=== PATIENT | female | born 1995 | race Caucasian/White ===

== ENCOUNTER 2024-06-14 16:00 | Outpatient (CLI) | payer BC, SELFPAY ==
[2024-06-14 18:50] LABS: Chlamydia DNA Amplified* NOT DETECTED (No Detected); GC DNA Amplified* NOT DETECTED (No Detected)
[2024-06-18 11:10] LABS: HPV Source Cervix; HPV, High Risk by TMA Not Detected
== END 2024-06-14 16:01 | disposition home or self-care (01) ==
PROVIDERS: Visit Provider Midwife
DX: Z34.91 Encounter for supervision of normal pregnancy, unspecified, first trimester (principal); Z12.4 Encounter for screening for malignant neoplasm of cervix; Z3A.08 8 weeks gestation of pregnancy; Z13.79 Encounter for other screening for genetic and chromosomal anomalies
CPT/HCPCS: 76817; 86592; 86703; 86704; 86706; 86762; 86787; 86803; 86850; 86900; 86901; 87086; 87340; 87491; 87591; 87624; 87625; 88141; 88142

== ENCOUNTER 2024-09-14 10:45 | Outpatient (CLI) | payer BC, SELFPAY | END 2024-09-14 10:46 | disposition home or self-care (01) | LOC: US 10:45 | PROVIDERS: PCP Nurse Practitioner Family; Visit Provider Midwife | DX: O99.212 Obesity complicating pregnancy, second trimester (principal); Z68.42 Body mass index [BMI] 45.0-49.9, adult; Z3A.21 21 weeks gestation of pregnancy | CPT/HCPCS: 76811 ==

== ENCOUNTER 2024-10-12 10:19 | Outpatient (CLI) | payer BC, SELFPAY | END 2024-10-12 10:20 | disposition home or self-care (01) | PROVIDERS: PCP Nurse Practitioner Family; Visit Provider Advanced Practice Midwife | DX: Z34.92 Encounter for supervision of normal pregnancy, unspecified, second trimester (principal); Z3A.25 25 weeks gestation of pregnancy | CPT/HCPCS: 76816 ==

== ENCOUNTER 2024-11-01 14:09 | Outpatient (CLI) | payer BC, SELFPAY ==
--- NOTE | 2024-11-01 14:09 | CRLHL7_ITS ---
For Patients: As a result of the Century Cures Act, medical imaging exams and procedure reports are released immediately into your electronic medical record. You may view this report before your referring provider. If you have questions, please contact your health care provider. OB ULTRASOUND LMP: 04/18/2024. TALA by LMP: 01/23/2025. GA: 28 w, 1 d. Single Comparison: 10/12/2024, 09/14/2024, 06/14/2024. INDICATION: Ultrasound for growth. Follow-up heart views. Elevated BMI. TECHNIQUE: Real time grayscale imaging of the fetus was performed. Transabdominal. CERVIX: Visualized. TA or TV measurement: 4.6 cm. POSITIONING: Vertex. AMNIOTIC FLUID: 5.4 cm. SDP (N: greater than 2 x 1 cm) PLACENTA: Technique: Transabdominal. PLACENTA POSITION: Fundal, posterior. DOPPLER: heart rate: 159 bpm. BIOMETRY: BPD: 7.4 cm. 29 w, 4 d, 80.8 percent. HC: 27.5 cm. 30 w, 1 d, 78.1 percent. AC: 23.6 cm. 28 w, 0 d, 35.8 percent. FL: 5.3 cm. 28 w, 0 d, 30.3 percent. FL/AC ratio: 22.3 percent. HC/AC ratio: 1.2. EFW: 1199 g. Weight: 2 lbs, 10 oz. age by this US: 29 w, 0 d. TALA by this US: 01/17/2025. Percentile by TALA: 41.4 percent. IMPRESSION: 1. Estimated weight is at the 41st percentile. 2. Four-chamber heart and cardiac outflow tracts appear normal. Too Mcrae M.D. Body/Diagnostic Radiologist [email or web address] PING/nahun garn[place]/Dictated by: Too Mcrae MD @ 11/02/2024 3:27:00 PM (Electronically Signed)
== END 2024-11-01 14:10 | disposition home or self-care (01) ==
LOC: US 14:10
PROVIDERS: PCP Nurse Practitioner Family; Visit Provider Advanced Practice Midwife
DX: O99.213 Obesity complicating pregnancy, third trimester (principal); Z3A.28 28 weeks gestation of pregnancy
CPT/HCPCS: 76816; 86592

== ENCOUNTER 2024-12-13 14:43 | Outpatient (CLI) | payer BC, SELFPAY ==
--- NOTE | 2024-12-13 15:00 | CRLHL7_ITS ---
For Patients: As a result of the Century Cures Act, medical imaging exams and procedure reports are released immediately into your electronic medical record. You may view this report before your referring provider. If you have questions, please contact your health care provider. OB ULTRASOUND BIOPHYSICAL PROFILE AND FOLLOW-UP Clinical History: LMP: 04/18/2024. TALA by LMP: 01/13/2025. GA: 34 w, 1 d. Single. Comparison: 11/01/2024, 10/12/2024, 09/14/2024. INDICATION: Obesity. TECHNIQUE: Real time cage scale imaging of the fetus was performed. Transabdominal imaging performed. CERVIX: Not visualized. POSITIONING: Vertex. AMNIOTIC FLUID: 6.2 cm. SDP (N: greater than 2 x 1 cm) BIOPHYSICAL PROFILE: Gross body movements: 2. tone: 2. Respiratory activity: 2. Amniotic fluid: 2. SDP (N: greater than 2 x 1 cm). Total score: 8. PLACENTA: Technique: Transabdominal. PLACENTA POSITION: Fundal, posterior. DOPPLER: heart rate: 144 bpm. BIOMETRY: BPD: 8.8 cm. 35 w, 3 d, 83.2 percent. HC: 32.9 cm. 37 w, 3 d, 89.0 percent. AC: 31.5 cm. 35 w, 3 d, 86.2 percent. FL: 6.6 cm. 34 w, 0 d, 35.0 percent. FL/AC ratio: 20.92 percent. HC/AC ratio: 1.04. EFW: 2628 g. Weight: 5 lbs, 13 oz. age by this US: 35 w, 4 d. TALA by this US: 01/13/2025. Percentile by TALA: 76.4 percent. IMPRESSION: 1. Sonographic gestational age 35 weeks 4 days and sonographic due date 01/13/2025. Sonographic age is 10 days ahead of the clinical age. 2. Estimated weight 76th percentile. Abdominal circumference 86th percentile. 3. Biophysical profile is normal at 8/8. Marv Mccollum M.D. Diagnostic Radiologist [email or web address] SP/Dictated by: Marv Mccollum MD @ 12/13/2024 8:19:00 PM (Electronically Signed)
== END 2024-12-13 14:44 | disposition home or self-care (01) ==
PROVIDERS: PCP Nurse Practitioner Family; Visit Provider Advanced Practice Midwife
DX: O99.213 Obesity complicating pregnancy, third trimester (principal); O36.5930 Maternal care for other known or suspected poor fetal growth, third trimester, not applicable or unspecified; Z3A.35 35 weeks gestation of pregnancy
CPT/HCPCS: 76816; 76819

== ENCOUNTER 2024-12-27 16:28 | Outpatient (CLI) | payer BC, SELFPAY ==
[2024-12-28 18:21] LABS: Strep B DNA Probe Negative (Negative)
[2024-12-28 21:54] LABS: Strep B Susceptibility Needed? No
== END 2024-12-27 16:29 | disposition home or self-care (01) ==
LOC: NFLDREF 16:28
PROVIDERS: PCP Nurse Practitioner Family; Visit Provider Advanced Practice Midwife
DX: O09.93 Supervision of high risk pregnancy, unspecified, third trimester (principal); Z3A.36 36 weeks gestation of pregnancy
CPT/HCPCS: 87081; 87653

== ENCOUNTER 2025-01-09 13:59 | Outpatient (CLI) | payer BC, SELFPAY ==
--- NOTE | 2025-01-09 14:00 | CRLHL7_ITS ---
For Patients: As a result of the Century Cures Act, medical imaging exams and procedure reports are released immediately into your electronic medical record. You may view this report before your referring provider. If you have questions, please contact your health care provider. OB ULTRASOUND LMP: 04/18/2024. TALA by LMP: 01/23/2025. GA: 38 w, 0 d. Single. COMPARISON: 12/13/2024, 11/01/2024, 10/12/2024. INDICATION: Obesity. TECHNIQUE: Real time cage scale imaging of the fetus was performed. Transabdominal imaging performed. CERVIX: Not visualized. POSITIONING: Vertex. AMNIOTIC FLUID: 6.8 cm. SDP (N: greater than 2 x 1 cm). BIOPHYSICAL PROFILE: Gross body movements: 2. tone: 2. Respiratory activity: 2. Amniotic fluid: 2. SDP (N: greater than 2 x 1 cm) Total score: 8. PLACENTA: Technique: Transabdominal. PLACENTA POSITION: Fundal, posterior. DOPPLER: heart rate: 165 bpm. BIOMETRY: BPD: 9.3 cm. 37 w, 5 d, 65.2 percent. HC: 34.6 cm. 40 w, 0 d, 77.1 percent. AC: 35.0 cm. 38 w, 6 d, 87.6 percent. FL: 7.2 cm. 36 w, 6 d, 25.6 percent. FL/AC ratio: 20.59 percent. HC/AC ratio: 0.99. EFW: 3496 g. Weight: 7 lbs, 11 oz. age by this US: 38 w, 3 d. TALA by this US: 01/20/2025. Percentile by TALA: 73.6 percent. IMPRESSION: 1. Normal biophysical profile 03/17. 2. Sonographic gestational age 38 weeks 3 days and sonographic due date 01/20/2025. Good correlation with dates. Normal interval growth. 3. Estimated weight 74th percentile. Abdominal circumference 88th percentile. Marv Mccollum M.D. Diagnostic Radiologist [email or web address] DESHAUN/Dictated by: Marv Mccollum MD @ 01/09/2025 8:58:00 PM (Electronically Signed)
== END 2025-01-09 14:00 | disposition home or self-care (01) ==
LOC: US 14:00
PROVIDERS: PCP Nurse Practitioner Family; Visit Provider Advanced Practice Midwife
DX: O99.213 Obesity complicating pregnancy, third trimester (principal); Z3A.38 38 weeks gestation of pregnancy
CPT/HCPCS: 76816; 76819

== ENCOUNTER 2025-01-25 17:48 | Inpatient (IN) | payer BC, SELFPAY ==
[2025-01-25 18:14] VITALS: BP 113/58; PULSE 72; PULSE 82; TEMP 36.6; O2SAT 96
[2025-01-25 18:34] VITALS: BMI 46.3
--- NOTE | 2025-01-25 20:37 | W.PM.LDBA ---
Subjective History of Present Illness Date Seen: 01/25/25 Narrative: Patient is being admitted to Labor and Delivery for IOL for BMI >45. She is a 29 year old at 40.2 weeks gestation. Her full history and physical was dictated by Rina Jimenez CNM on 01/05/25. Please see this for details. We discussed option for IOL. She was checked last week in clinic and was 1cm/0%/-4 at that time. She has felt only a few contraction over the last week and so declines cervical exam at this time. Will presume there has not been enough change for mayberry score to be >6 so will plan for cervical ripening. Discussed Cytotec, Cervidil, and cook catheter. She would like to avoid Cook if possible. Will plan for vaginal Cytotec overnight with Pitocin to follow. All questions answered. Encouraged therapeutic sleep overnight and she s agreeable to this. manager call OB provider was notified of the IOL for BMI .45 per policy. Specific Issues/Plans G1 P 0 Partner: Dieter-? H&P completed by AIXA Barboza on 01/05/2025? ? #Pre BMI 45.6: Diet and weight recommendations reviewed 06/14/24 Nutrition referral-[]-offer again please Anesthesia referral-completed 09/14 OB referral- completed 09/14 Lev 2 US- Completed 09/14: several suboptimal views. Repeat 10/12: suboptimal views of heart; Echo recommended. Declines, knows risks. US 11/01/24-1. Estimated weight is at the 41st percentile. 2. Four-chamber heart and cardiac outflow tracts appear normal. [facility] recommends Growth Q4-6 weeks starting at 28 weeks: 28 wks 41.4, 34 wks- 76.4 percent. Weekly BPP or NST starting at 34w -message sent to practice administrator for NSTs. Delivery recommendation 39.0-39.6, considering but may desire later timing #Primigravida: Enc baby ASA at 12w #Rubella and Varicella non-immune Recommend vaccines Per [facility] she is vaccinated for all including Hep B as a child #Hep B non-immune Low risk, deferred on 09/14 #Nipple vasospasms: Consider testing for Raynauds Consider appt prenatally, offered pt undecided # Brother had shingles 5/27/25, non immune to varicella; recommended to avoid direct contact and standard precautions IMAGINst trimester (06/14/2024): Single intrauterine gestation with estimated age of 8 weeks 2 days. Regular cardiac activity is seen. Anatomy scan, Level II w/ MFM (09/14/2024): Impression: 1. [place] at 21w2d gestational age. 2. No anomalies commonly detected by ultrasound were identified in the detailed anatomic survey within the limits of ultrasound, however some views were suboptimal, as described above. 3. Growth parameters and estimated weight were consistent with gestational age predicted by assigned TALA. 4. The amniotic fluid volume appeared normal. 5. On transabdominal imaging the cervix appeared long and closed. Follow up suboptimal views(10/12/2024): Impression: 1. [place] at 25w2d gestational age. 2. Some of the remaining anatomic survey was completed, no anomalies commonly detected by ultrasound were identified within the limits of ultrasound, however, some views again remained suboptimally visualized as documented above. 3. Growth parameters and estimated weight were consistent with gestational age predicted by assigned TALA. 4. The amniotic fluid volume appeared normal. Growth US (11/01/2024): IMPRESSION: 1. Estimated weight is at the 41st percentile. 2. Four-chamber heart and cardiac outflow tracts appear normal. Growth US (12/13/2024): IMPRESSION: 1.Sonographic gestational age 35 weeks 4 days and sonographic due date 01/13/2025. Sonographic age is 10 days ahead of the clinical age. 2.Estimated weight 76th percentile. Abdominal circumference 86th percentile. 3.Biophysical profile is normal at 8/8. Growth and BPP (01/09/25): BPP 8/8, EFW 74% COVID: declines Flu: declines TDAP: 12/13/2024 32wk Mental Health:11/29/2024 LP: 08/02/18 HPV(+)for other NIL. Done 06/14/2024 OB - Problem Based A/P Additional Plan (1) Encounter for induction of labor: Status: Acute (2) Obesity affecting , antepartum: Status: Acute (3) Body mass index [BMI] 45.0-49.9, adult: Status: Acute Plan ASSESSMENT:? at 40.2 weeks gestation? GBS negative? complicated by: prepregnancy BMI 45.6, current BMI 46.1, primigravida, rubella nonimmune, varicella nonimmune Medical IOL for elevated BMI? Blood type:?A+ Labor type: Induced, vaginal Cytotec? Category 1 FHR pattern ? PLAN:? 1. Routine intrapartum cares as ordered. Continue with expectant management? 2. Reviewed risks and benefits of IOL with Pitocin vs Cytotec. Pt prefers Cytotec. Pitocin to follow if needed.? 3. Monitoring per policy, continuous? 4. Candidate for analgesia of choice.?Planning epidural.? 5. Patient encouraged to reposition and ambulate to promote physiologic labor and . 6. Encouraged therapeutic rest overnight. ? 7. Anticipate ? Delivery/Labor/Induction Plan Plan: induction Induction method: per misoprostol protocol OB Result Labs Blood Type: A (+) positive Rubella: nonimmune RPR/VDLR: nonreactive GBS Status: negative HBsAG: negative OB Exam Physical Exam Vital signs: Temp Pulse BP Pulse Ox 97.9 F 72 113/58 L 96 01/25/25 18:14 01/25/25 18:14 01/25/25 18:14 01/25/25 18:14 Narrative: Psychiatric:? Alert and oriented x3? HEENT:? Normocephalic, atraumatic? Neck:? Supple without adenopathy or thyromegaly? Lungs:? Clear to auscultation bilaterally? Heart:? Regular rate and rhythm, no murmur, rub or gallop? Abdomen:? Soft, nontender, and gravid? Extremities:? No edema or erythema? Detailed Labor and Delivery Exam Patient Gravid: yes Contraction Frequency: inconsistent on the [place] and not felt per pt report. Contraction intensity: Mild Fetus (Single) Amniotic Membrane Status: intact Heart Rate Baseline: 130 Monitor Accelerations: Present Monitor Decelerations: None Demurrage Agent Variability: Moderate (6-25)
[2025-01-25] MEDS: miSOPROStoL 25 MCG/0.25 TABLET VAGINAL (20:40)
[2025-01-25 20:45] VITALS: BP 117/62; PULSE 82; RESP 16; TEMP 36.7
[2025-01-25 20:46] VITALS: PULSE 83; PULSE 90; O2SAT 97
[2025-01-26] VITALS (60 sets, daily range): BP systolic 86–127; BP diastolic 45–70; PULSE 30–92; RESP 16–20; TEMP 36.6–36.8; O2SAT 92–100
[2025-01-26 01:23] LABS: Basophils Percent Auto 0.1 % (0.0-3.0); Eosinophils Percent Auto 0.7 % (0.0-7.0); Hemoglobin* 12.5 gm/dL (12.0-16.0); Immature Granulocytes Pct Auto 0.2 %; Lymphocytes Percent Auto 31.7 % (20-44); Mean Corpuscular HGB Conc 33 gm/dL (32-36); Mean Corpuscular Hemoglobin 31 pg (26-34); Mean Corpuscular Volume 94 fL (80-100); Monocytes Percent Auto 7.1 % (0.0-11.0); Neutrophils Percent Auto 60.2 % (42.0-72.0); Platelet Count* 272 K/uL (140-440); RDW Coefficient of Variation % 13.9 % (11.5-15.5); Red Blood Count 4.06 m/uL (4.00-5.20); White Blood Count* 11.18 K/uL (4.50-11.00)
[2025-01-26 01:26] LABS: Slide Review Reflex No
[2025-01-26] MEDS: miSOPROStoL 25 MCG/0.25 TABLET VAGINAL ×4 (02:15→12:35)
--- NOTE | 2025-01-26 07:18 | PM.OBPNL ---
Subjective Date Seen: 01/26/25 Narrative: Patient is being induced for BMI >45. She is a 29 year old at 40.3 weeks gestation. She is currently showering and plans to eat breakfast prior to her 4th dose of vaginal cytotec. She is starting to feel her mild contractions. She is planning an epidural at some point. Her is here supporting her at bedside. Specific Issues/Plans G1 P 0 Partner: Dieter-? H&P completed by AIXA Barboza on 01/05/2025? ? #Pre BMI 45.6: Diet and weight recommendations reviewed 06/14/24 Nutrition referral-declined Anesthesia referral-completed 09/14 OB referral- completed 09/14 Lev 2 US- Completed 09/14: several suboptimal views. Repeat 10/12: suboptimal views of heart; Echo recommended. Declines, knows risks. US 11/01/24-1. Estimated weight is at the 41st percentile. 2. Four-chamber heart and cardiac outflow tracts appear normal. [facility] recommends Growth Q4-6 weeks starting at 28 weeks: 28 wks 41.4, 34 wks- 76.4 percent. Weekly BPP or NST starting at 34w -message sent to production planner scheduler for NSTs. Delivery recommendation 39.0-39.6, considering but may desire later timing #Primigravida: Enc baby ASA at 12w #Rubella and Varicella non-immune Recommend vaccines Per [facility] she is vaccinated for all including Hep B as a child #Hep B non-immune Low risk, deferred on 09/14 #Nipple vasospasms: Consider testing for Raynauds Consider appt prenatally, offered pt undecided # Brother had shingles 01/03/25, non immune to varicella; recommended to avoid direct contact and standard precautions IMAGINst trimester (06/14/2024): Single intrauterine gestation with estimated age of 8 weeks 2 days. Regular cardiac activity is seen. Anatomy scan, Level II w/ [facility] (09/14/2024): Impression: 1. [place] at 21w2d gestational age. 2. No anomalies commonly detected by ultrasound were identified in the detailed anatomic survey within the limits of ultrasound, however some views were suboptimal, as described above. 3. Growth parameters and estimated weight were consistent with gestational age predicted by assigned TALA. 4. The amniotic fluid volume appeared normal. 5. On transabdominal imaging the cervix appeared long and closed. Follow up suboptimal views(10/12/2024): Impression: 1. [place] at 25w2d gestational age. 2. Some of the remaining anatomic survey was completed, no anomalies commonly detected by ultrasound were identified within the limits of ultrasound, however, some views again remained suboptimally visualized as documented above. 3. Growth parameters and estimated weight were consistent with gestational age predicted by assigned TALA. 4. The amniotic fluid volume appeared normal. Growth US (11/01/2024): IMPRESSION: 1. Estimated weight is at the 41st percentile. 2. Four-chamber heart and cardiac outflow tracts appear normal. Growth US (12/13/2024): IMPRESSION: 1.Sonographic gestational age 35 weeks 4 days and sonographic due date 01/13/2025. Sonographic age is 10 days ahead of the clinical age. 2.Estimated weight 76th percentile. Abdominal circumference 86th percentile. 3.Biophysical profile is normal at 03/17. Growth and BPP (01/09/25): BPP 8, EFW 74% COVID: declines Flu: declines TDAP: 12/13/2024 32wk Mental Health:11/29/2024 LP: 08/02/18 HPV(+)for other NIL. Done 06/14/2024 Objective Exam: Objective: Constitutional: Alert and oriented x3, no distress, coping well Vital signs stable, see nurse documentation. occasional low BP, but stable Abdomen: deferred Cervix: 1 cm/0%/-4 station/per last clinic exam NST: 130 bpm/moderate variability/accelerations present/decelerations absent/irregular contractions. This assessment was done from prior strip when monitor was picking up well. RN is making adjustments to detect FHR and contractions accurately. Vital Signs: Last Vital Signs Temp 98.1 F 01/26/25 05:40 Pulse 65 01/26/25 05:40 Resp 16 01/26/25 05:40 BP 125/65 01/26/25 05:40 Pulse Ox 97 01/25/25 20:46 Plan Plan: at 40.3 weeks gestation? GBS negative? complicated by: prepregnancy BMI 45.6, current BMI 46.1, primigravida, rubella nonimmune, varicella nonimmune Medical IOL for elevated BMI? Blood type:?A+ Labor type: Induced, vaginal Cytotec? Category 1 FHR pattern ? PLAN:? 1. Routine intrapartum cares as ordered. Pt to eat breakfast prior to next intervention for IOL per her preference. 2. Continue vaginal misoprostol as indicated versus IV pitocin. 3. Monitoring per policy, continuous? 4. Candidate for analgesia of choice.?Planning epidural.? 5. Patient encouraged to reposition and ambulate to promote physiologic labor and . 6. Anticipate ?
--- NOTE | 2025-01-26 13:35 | PM.OBPNL ---
Subjective Date Seen: 01/26/25 Narrative: Patient is being induced for BMI >45. She is a 29 year old at 40.3 weeks gestation. She is currently resting in bed with her supportive at the bedside. She has received 4 doses of misoprostol. She is feeling contractions minimally. No LOF or vaginal bleeding noted. She is coping well and eating and drinking. Specific Issues/Plans G1 P 0 Partner: Dieter-? H&P completed by AIXA Barboza on 01/05/2025? ? #Pre BMI 45.6: Diet and weight recommendations reviewed 06/14/24 Nutrition referral-declined Anesthesia referral-completed 09/14 OB referral- completed 09/14 Lev 2 US- Completed 09/14: several suboptimal views. Repeat 10/12: suboptimal views of heart; Echo recommended. Declines, knows risks. US 11/01/24-1. Estimated weight is at the 41st percentile. 2. Four-chamber heart and cardiac outflow tracts appear normal. [facility] recommends Growth Q4-6 weeks starting at 28 weeks: 28 wks 41.4, 34 wks- 76.4 percent. Weekly BPP or NST starting at 34w -message sent to landscape architecture teacher for NSTs. Delivery recommendation 39.0-39.6, considering but may desire later timing #Primigravida: Enc baby ASA at 12w #Rubella and Varicella non-immune Recommend vaccines Per [facility] she is vaccinated for all including Hep B as a child #Hep B non-immune Low risk, deferred on 09/14 #Nipple vasospasms: Consider testing for Raynauds Consider appt prenatally, offered pt undecided # Brother had shingles 01/03/25, non immune to varicella; recommended to avoid direct contact and standard precautions IMAGINst trimester (06/14/2024): Single intrauterine gestation with estimated age of 8 weeks 2 days. Regular cardiac activity is seen. Anatomy scan, Level II w/ M (09/14/2024): Impression: 1. [place] at 21w2d gestational age. 2. No anomalies commonly detected by ultrasound were identified in the detailed anatomic survey within the limits of ultrasound, however some views were suboptimal, as described above. 3. Growth parameters and estimated weight were consistent with gestational age predicted by assigned TALA. 4. The amniotic fluid volume appeared normal. 5. On transabdominal imaging the cervix appeared long and closed. Follow up suboptimal views(10/12/2024): Impression: 1. [place] at 25w2d gestational age. 2. Some of the remaining anatomic survey was completed, no anomalies commonly detected by ultrasound were identified within the limits of ultrasound, however, some views again remained suboptimally visualized as documented above. 3. Growth parameters and estimated weight were consistent with gestational age predicted by assigned TALA. 4. The amniotic fluid volume appeared normal. Growth US (11/01/2024): IMPRESSION: 1. Estimated weight is at the 41st percentile. 2. Four-chamber heart and cardiac outflow tracts appear normal. Growth US (12/13/2024): IMPRESSION: 1.Sonographic gestational age 35 weeks 4 days and sonographic due date 01/13/2025. Sonographic age is 10 days ahead of the clinical age. 2.Estimated weight 76th percentile. Abdominal circumference 86th percentile. 3.Biophysical profile is normal at 03/17. Growth and BPP (01/09/25): BPP 8/8, EFW 74% COVID: declines Flu: declines TDAP: 12/13/2024 32wk Mental Health:11/29/2024 LP: 08/02/18 HPV(+)for other NIL. Done 06/14/2024 Objective Exam: Objective: Constitutional: Alert and oriented x3, no distress, coping well Vital signs stable, see nurse documentation Abdomen: gravid, contractions palpate mild with contractions and soft between Cervix: 3 cm/40%/-3 station/vertex with palpable sutures NST: 130 bpm/moderate variability/accelerations present/decelerations absent/contractions q 2-4 min x 50-60 Vital Signs: Last Vital Signs Temp 97.8 F 01/26/25 12:28 Pulse 67 01/26/25 12:28 Resp 18 01/26/25 12:28 BP 118/70 01/26/25 12:28 Pulse Ox 96 01/26/25 09:13 Plan Plan: at 40.3 weeks gestation? GBS negative? complicated by: prepregnancy BMI 45.6, current BMI 46.1, primigravida, rubella nonimmune, varicella nonimmune Medical IOL for elevated BMI? Blood type:?A+ Labor type: Induced, vaginal Cytotec? Category 1 FHR pattern ? PLAN:? 1. Routine intrapartum cares as ordered. 2. Continue vaginal misoprostol as indicated versus IV pitocin. 5th dose of vaginal cytotec placed around 1230. Membranes swept with consent. 3. Monitoring per policy, continuous? 4. Candidate for analgesia of choice.?Planning epidural.? 5. Patient encouraged to reposition and ambulate to promote physiologic labor and after routine 1 hour in bed after vaginal cytotec. 6. Anticipate ?
[2025-01-26] MEDS: SODIUM CHLORIDE 0.9 % (FLUSH) 10 ML SYRINGE IVF (13:45)
[2025-01-26] MEDS: LACTATED RINGERS 1000 ML 1,000 ML 1200 ML IV (17:56)
[2025-01-26] MEDS: BUPIVACAINE 0.25% PF 10 ML 10 ML ML EPIDURAL (18:46)
[2025-01-26] MEDS: ROPIVACAINE 0.2% 100 ml 100 ML 12 MG EPIDURAL (19:00)
--- NOTE | 2025-01-26 19:08 | PM.ANBPRC ---
[facility] Medical History Body mass index [BMI] 45.0-49.9, adult ?Z68.42 - Body mass index [BMI] 45.0-49.9, adult (ICD-10) Oral herpes ?B00.2 - Herpesviral gingivostomatitis and pharyngotonsillitis (ICD-10) Social History What is your current living situation?: I presently have a place to live Problems where you live: no known problems In the past 12 months, utilities in danger of being shut off: no In past 12 months, lack of transportation kept you from medical appts, meetings, work, or getting things needed for daily living: no In the past 12 mos, have been you worried that your food would run out before you had money to buy more?: never true In the past 12 mos, the food you bought just didn't last and you didn't have money to buy more?: never true Smoking Status: Never smoker How often does anyone, including family, friends and others, physically hurt you: never How often does anyone, including family, friends and others, insult or talk down to you: never How often does anyone, including family, friends and others, threaten you with harm: never How often does anyone, including family, friends and others, scream or curse at you: never Meds Home Medications and Allergies Home Medications ?Medication ?Instructions ?Recorded ?Confirmed ?Type vit 168-iron 27 mg-folic 1 cap PO DAILY 06/14/24 01/25/25 History acid 800 mcg-omega3 235 mg capsule (One-A-Day -1) valacyclovir 500 mg tablet 500 mg PO QDAY PRN 06/14/24 01/25/25 History aspirin 81 mg chewable tablet 81 mg PO QDAY 08/16/24 01/25/25 History cholecalciferol (vitamin D3) 125 125 mcg PO QDAY 08/16/24 01/25/25 History mcg (5,000 unit) capsule magnesium 250 mg tablet 250 mg PO QDAY 08/16/24 01/25/25 History Allergies Allergy/AdvReac Type Severity Reaction Status Date / Time No Known Drug Allergies Allergy Verified 01/25/25 18:26 Results Labs Labs: Laboratory Results - last 24 hr 01/26/25 01:15 WBC 11.18 H RBC 4.06 Hgb 12.5 Hct 38.0 MCV 94 MCH 31 MCHC 33 RDW Coeff of Celestine 13.9 Plt Count 272 Neut % (Auto) 60.2 Lymph % (Auto) 31.7 [place] % (Auto) 7.1 Eos % (Auto) 0.7 Baso % (Auto) 0.1 Neut # (Auto) 6.70 Lymph # (Auto) 3.50 H [place] # (Auto) 0.80 Eos # (Auto) 0.10 Baso # (Auto) 0.00 Abs Immat Gran (auto) 0.00 Imm/Tot Granulo (auto) 0.2 Blood Type A Positive Antibody Screen NEGATIVE Vital Signs Vital Signs: Last Vital Signs Temp 98.2 F 01/26/25 18:48 Pulse 69 01/26/25 19:08 Resp 18 01/26/25 18:48 BP 90/51 L 01/26/25 19:08 Pulse Ox 100 01/26/25 19:04 Weight: 138.346 kg Height: 172.72 cm Anesthesia Procedures Epidural Insertion Patient Location: OB Start Time: 18:30 Stop Time: 19:08 Start Date: 01/26/25 Stop Date: 01/26/25 Reason for Block: procedure for pain Patient Position: sitting Performed By: Angel Hoyt Preanesthetic Checklist: IV checked, risks and benefits discussed, monitors and equipment checked, pre-op evaluation, timeout performed and anesthesia consent Prep: chlorhexidine gluconate Monitoring: blood pressure monitoring, continuous pulse oximetry and heart rate Approach: midline Vertebral Space: lumbar (1-5) Epidural Technique: UCHE saline Needle Type: Tuohy needle Injection Technique: continuous catheter Needle gauge: 17 Needle Length (cm): 10 cm Needle Insertion Depth (cm): 8 Catheter Gauge: 19 Catheter Type: multi-orifice Catheter at skin depth (cm): 14 Test Dose Result: negative and lidocaine 1.5% with epinephrine 1 to 200,000
[2025-01-26] MEDS: LACTATED RINGERS 1000 ML 1,000 ML 125 ML IV (19:55)
[2025-01-26] MEDS: OXYTOCIN 30 unit/500 ML in NS 30 UNIT/500 ML BAG IVPB (20:21)
--- NOTE | 2025-01-26 20:21 | PM.EN ---
Chart Event Note Chart Event Note: Update via phone from Nursing: Pt is comfortable with her epidural. VE per nursing /-3. FHTs category I with baseline of 125 bpm, moderate variability, accels present, decels absent. No LOF. Contractions every 1-8 minutes and irregular. Pitocin initiation as previously discussed with patient and her . AROM is not yet an option since baby is too high. Will update me as indicated.
[2025-01-27] VITALS (15 sets, daily range): BP systolic 89–117; BP diastolic 56–77; PULSE 60–89; RESP 16–19; TEMP 36.5–36.9; O2SAT 97–98
--- NOTE | 2025-01-27 00:22 | W.PM.OBVAGDE ---
OB Procedure Vag Delivery Mother Details Mother Details: The patient is a 29 year-old, 1, Para 1, admitted on 01/25/25 at Days gestation. Admission Date: 01/25/25 Additional Details Amniotic Membrane Status: SROM Amniotic Membrane Rupture Date: 01/26/25 Amniotic Membrane Rupture Time: 23:28 Amniotic Membrane Fluid Description: Clear Analgesia/Anesthesia Type: Epidural Waterbirth: No Pitcoin: Yes Intrapartal Events: None Induction Method: per misoprostol protocol and per pitocin protocol Labor Onset: 14:00 Complete: 23:28 Pushin:28 Heart: heart tones during second stage were cat 2 with baseline of 135, moderate variability, and variable decelerations periodic Delivery Details Delivery Date: 01/26/25 Delivery Time: 23:43 Route of delivery: Infant Gender: Female Viability: Alive; Heart Rate Present Position at Delivery: OA Delivery Details: Patient was admitted for IOL for elevated BMI and progressed normally with pitocin. SROM noted at 2328 with clear fluid. Patient was complete at 2328 and pushing at 1243. She essentially did not push at all and baby delivered quickly into the Saundra RN's hands. ER MD arrived shortly after. of a viable female at 2343 in OA. Vertex delivered OA. No nuchal cord or shoulder dystocia. Body delivered easily and without incident. Infant passed to mothers abdomen with a vigorous cry. Cord was clamped and cut at > 5 minutes. APGARS were 9 at one minute and 9 at five minutes respectively. I arrived prior to placenta delivery and delivered that with maternal pushing efforts. One area of the placenta had a lacerated cotyledon, so state of intactness cannot be certain. Though it does lay perfectly back together when creating a curved plane. Placenta with a 3 vessel cord delivered spontaneously at 0003 01/27/2025 . Fundus firm. No lacerations identified. EBL 100 cc. Mother and baby stable; mother plans to breastfeed. Infant weight pending.? 1 Minute Interval Total Score: 9 5 Minute Interval Total Score: 9 Additional Details Shoulder Dystocia: No Placenta Delivery Time: 00:03 Placental Delivery Description: Spontaneous Procedure Done: Global Laceration: None Blood Loss Measurement Type: EBL Bakri Used: No Sponge/Need Count Correct: Yes Cord Vessel Description: 3 Vessels and Clamped/Cut Event Summary Status: Mother and were stable after delivery. Disposition: floor
[2025-01-27] MEDS: ONDANSETRON 2 MG/ML inj 4 MG IV (02:46)
--- NOTE | 2025-01-27 12:20 | PM.OBPNVD1 ---
OB - PN:Subj Subjective Date Seen: 01/27/25 Narrative: Imelda is a 29 y.o. who was admitted to L & D for IOL.? She had an uncomplicated NVD.? ?? The patient feels well.? The pain is well controlled with current medications.? She has no new complaints.? She is breast feeding and reports things are going well, they are supplementing with a bottle due to some temp instability for the .? the patient has done well.? Vitals have been stable.? She has remained afebrile.? Has a good appetite, is tolerating a general diet.? She is voiding without difficulty.? She is passing gas and has not had a bowel movement.? She is ambulating and denies any dizziness.? Has Small amount of rubra lochia.? OB - PN: Obj Exam Physical Exam: Vital signs: Temp Pulse Resp BP Pulse Ox O2 Del Method 97.8 F 68 16 106/71 97 Room Air 01/27/25 12:02 01/27/25 12:02 01/27/25 12:02 01/27/25 12:02 01/27/25 12:02 01/27/25 12:02 Narrative: GENERAL APPEARANCE:? normal affect, alert, no distress? MOOD:? appropriate? HEENT: normocephalic, neck supple, full ROM? CHEST:? Symmetrical chest wall movement.? Normal respiratory effort.? Clear to auscultation ? HEART:? regular rate and rhythm? ABDOMEN:? soft, non-tender. Uterine fundus is firm, at Umbilicus, Midline and is appropriate for the stage of recovery.? Bowel sounds present.? PERINEUM:? mild edema of the perineum.? EXTREMITIES:? normal and no edema? OB - PN: A/P Delivery Assessment and Plan (1) Obesity affecting , antepartum: Status: Acute (2) Body mass index [BMI] 45.0-49.9, adult: Status: Acute (3) care and examination of lactating mother: Status: Acute Plan day: 1 Plan: routine care Comments: G 1 P 1 status post uncomplicated NVD??? 1.? Continue route PP cares? 2.? .? May see if desired? 3.? Anticipate discharge home tomorrow?
--- NOTE | 2025-01-27 15:03 | PM.ANPOST ---
Post Anesthesia Note Post Anesthesia Note Patient seen: Inpatient Respiratory Status: adequate Cardiovascular Status: adequate Mental Status: baseline Pain: adequate Temp: baseline Anesthetic awareness: N/A Complications: none Follow care: none
[2025-01-27 16:53] LABS: Rapid Plasma Reagin (RPR) Non Reactive (Non Reactive)
[2025-01-27] MEDS: IBUPROFEN 600 MG TABLET PO (20:57)
[2025-01-28 06:46] LABS: Hemoglobin* 12.2 gm/dL (12.0-16.0)
[2025-01-28 07:50] VITALS: BP 86/53; PULSE 61; RESP 16; TEMP 36.9; O2SAT 96
--- NOTE | 2025-01-28 09:01 | PM.OBDSVD1 ---
DS: Providers Provider Date Seen: 01/28/25 Date of admission: 01/25/25 17:48 Primary care physician: Debra Schumacher APRN, [employer] Admitting Clinician: Kay Babin CNM Attending Physician on discharge: Geno Jimenez CNM DS: Diagnosis Discharge Diagnosis (1) care and examination of lactating mother: Status: Acute Exam Narrative: Exam Narrative: GENERAL APPEARANCE:? normal affect, alert, no distress MOOD:? appropriate CHEST:? clear to auscultation HEART:? regular rate and rhythm ABDOMEN:? soft, non-tender the uterine fundus is no cm At Umbilicus, Midline and is appropriate for the stage of recovery. PERINEUM:? mild edema of the perineum. EXTREMITIES:? normal and no edema Const: Vital Signs, click to edit/add: Vital Signs - 24 hr 01/27/25 12:02 01/27/25 15:30 01/27/25 19:42 Temperature 97.8 F 98.0 F 97.8 F Pulse Rate [Pulse Oximeter] 68 77 87 Respiratory Rate 16 16 19 Blood Pressure [Ri ght Arm] 106/71 100/66 99/64 Pulse Oximetry 97 97 97 Oxygen Delivery Me thod Room Air Room Air Room Air 01/27/25 23:57 01/28/25 07:50 Temperature 98.0 F 98.5 F Pulse Rate [Pulse Oximeter] 75 61 Respiratory Rate 16 16 Blood Pressure [Ri ght Arm] 105/69 86/53 L Pulse Oximetry 98 96 Oxygen Delivery Me thod Room Air Room Air Documenting provider has reviewed patient's vital signs: yes OB - DS: Summary Hospital Course Hospital Course: Imelda is a 29 y.o. G 1 P 1 who was admitted to L & D for induction of labor for elevated BMI. ?She had a NVD that was uncomplicated. The patient feels well. ?The pain is well controlled with current medications. ?She has no new complaints. ?She is breast feeding and reports things are going well. the patient has done well.? Vitals have been stable.? She has remained afebrile.? Has a good appetite, is tolerating a general diet. ?She is voiding without difficulty.? She is passing gas and has not had a bowel movement.? She is ambulating and denies any dizziness.? Has small amount of rubra lochia. Problems: none Discharge home with baby.? Follow up in 2 weeks and 6 weeks.? , may see if needed? Hgb 12.2. ? For pain control of perineum, breast and pelvic pain, take 600 mg Ibuprofen every 6 hours as needed by mouth or 1000 mg acetaminophen (Tylenol) every 6 hours by mouth as needed. You can alternate these so you are taking something every 3 hours as needed. A heating pad can also be used for your abdomen or breasts. You may also take docusate sodium up to twice daily to soften your stools and help to prevent constipation. You may wean off of it when your stools return to normal.? Peripartum Data delivery method: Vaginal Laceration description: None complications: none Infant Gender: Female Discharge Plan: Home Status at Discharge Functional status at discharge: independent ambulation Overall status at discharge: patient is progressing back to baseline Time Spent with Patient Time attestation: Total time spent providing and/or coordinating discharge services: Time spent: Less than 30 minutes Discharge Plan Discharge Disposition: Home, Self-Care Date of Admission: 01/25/25 17:48 Attending Provider on Discharge: Geno Jimenez Primary Care Provider: Debra Schumacher Condition: Stable Anticipated Discharge Date/Time: 01/28/25 12:00 Discharge Medications: New acetaminophen 500 mg Tablet 1,000 mg PO Q6H PRNQty: 0 0RF docusate sodium 100 mg Capsule 100 mg PO DAILY Qty: 0 0RF ibuprofen 600 mg Tablet 600 mg PO Q6H PRNQty: 0 0RF Continued One-A-Day -1 27 mg iron- 800 mcg-235 mg capsule 1 cap PO DAILY valacyclovir 500 mg tablet 500 mg PO QDAY PRN magnesium 250 mg tablet 250 mg PO QDAY cholecalciferol (vitamin D3) 125 mcg (5,000 unit) capsule 125 mcg PO QDAY Discontinued aspirin 81 mg tablet,chewable 81 mg PO QDAY Discharge Orders: Discharge Order (Routine); Ordered 01/28/25 Ordered By: Geno Jimenez Patient Education: OB Over the Counter Medication Information, OB Vaginal/Breast Feeding Additional Instructions: Discharge instructions were reviewed with the patient including signs and symptoms of infection and home going medications Nothing vaginally for 6 weeks: no tampons or intercourse Off Work or School for 6 weeks 2-week visit: discuss feeding concerns, review control options and screen for anxiety/depression. 6-week visit for an annual exam. consultation services are available to all mothers and babies for the first year after delivery.? To make an appointment, please call [phone]. Activity Level: Activity as Tolerated Discharge Diet: Regular Follow Up Appointments: [facility] [Provider Group] Forms: [employer] Info Instructions
== END 2025-01-28 11:50 | disposition home or self-care (01) | DRG 560 ==
PROVIDERS: Midwife; Admitting Provider Advanced Practice Midwife; PCP Nurse Practitioner Family; Visit Provider Advanced Practice Midwife
DX: O99.214 Obesity complicating childbirth (principal); E66.9 Obesity, unspecified; Z3A.40 40 weeks gestation of pregnancy; Z28.39 Other underimmunization status; Z37.0 Single live birth
CPT/HCPCS: 01967; 36415; 59200; 85018; 85025; 86592; 86850; 86900; 86901; A9270; J0665; J2405; J2795; J7120